=== PATIENT | male | born 1970 | race Caucasian/White ===

== ENCOUNTER 2017-12-24 16:22 | Inpatient (IN) | payer OTHER ==
[~2017-12-24] VITALS: Ht 165.1 cm; Wt 79.2 kg
[2017-12-24] MEDS ORDERED: PANTOPRAZOLE 80 MG in SODIUM CHLORIDE 0.9% 100 ML IV STA (16:35)
[2017-12-24] MEDS ORDERED: SODIUM CHLORIDE 0.9% IV STA (16:35)
[2017-12-24] MEDS ORDERED: SODIUM CHLORIDE 0.9% 1,000 ML IV ONE (16:35)
[2017-12-24] MEDS ORDERED: PANTOPRAZOLE IV STA (16:35)
[2017-12-24] MEDS ORDERED: PANTOPRAZOLE 80 MG in SODIUM CHLORIDE 0.9% 100 ML IV NR (17:00)
[2017-12-24 17:04] LABS: HEMATOCRIT. 33.1 % (42.0-52.0); HEMOGLOBIN. 11.3 g/dL (14.0-18.0); MEAN CORPUSCULAR HEMOGLOBIN 30.7 pg (28.0-32.0); PLATELET 271 x1000/uL (130-400); RED BLOOD CELL COUNT 3.67 mill/uL (4.7-6.1); RED CELL DISTRIBUTION WIDTH 13.3 % (11.6-14.6)
[2017-12-24 17:07] LABS: CHLORIDE 100 mEq/L (98-107)
[2017-12-24 17:08] LABS: INR 1.1; PROTHROMBIN TIME 11.3 sec (9.4-11.6)
[2017-12-24] MEDS ORDERED: PANTOPRAZOLE SODIUM 40 MG/VIAL IV NR (17:27)
[2017-12-24 17:32] LABS: PLATELET ESTIMATE NORMAL
[2017-12-24] MEDS ORDERED: ONDANSETRON HCL 4MG/2ML VIAL IM ONE (18:00)
[2017-12-24] MEDS ORDERED: NAP5EC PO (21:52)
[2017-12-24 22:00] VITALS: BP 154/94
[2017-12-24 22:10] VITALS: BP 154/94
[2017-12-25] VITALS (12 sets, daily range): BP systolic 98–150; BP diastolic 46–103
[2017-12-25 01:10] LABS: CHLORIDE 105 mEq/L (98-107)
[2017-12-25] MEDS: PANTOPRAZOLE 80 MG in SODIUM CHLORIDE 0.9% 100 ML IV SCH ×3 (02:00→23:39)
[2017-12-25] MEDS: DEXT 5%/0.45% NACL KCL 20MEQ/L 1,000 ML IV SCH ×3 (02:01→20:39)
[2017-12-25] MEDS ORDERED: ONDANSETRON HCL 4MG/2ML VIAL IV PRN (02:15)
[2017-12-25 07:45] LABS: HEMATOCRIT 26.7 % (42.0-52.0); HEMOGLOBIN 9.1 g/dL (14.0-18.0)
[2017-12-25] MEDS: SUCRALFATE 1 G/10 ML UDC PO SCH ×3 (11:16→20:39)
[2017-12-25 11:43] LABS: CHLORIDE 106 mEq/L (98-107)
[2017-12-25 11:55] LABS: BASOPHILS % 0.4 % (0.0-2.0); EOSINOPHILS % 0.9 % (0.0-5.0); HEMATOCRIT. 24.7 % (42.0-52.0); HEMOGLOBIN. 8.5 g/dL (14.0-18.0); LYMPHOCYTES % 25.4 % (20.0-50.0); MEAN CORPUSCULAR HEMOGLOBIN 31.2 pg (28.0-32.0); MEAN CORPUSCULAR VOLUME 91.1 fL (80.0-94.0); MEAN PLATELET VOLUME 8.8 fl (7.4-10.4); NEUTROPHILS % 63.3 % (40.0-76.0); PLATELET 182 x1000/uL (130-400); RED BLOOD CELL COUNT 2.71 mill/uL (4.7-6.1); RED CELL DISTRIBUTION WIDTH 13.6 % (11.6-14.6)
[2017-12-25 12:05] LABS: PARTIAL THROMBOPLASTIN TIME 23.3 sec (23.4-31.0); PROTHROMBIN TIME 10.4 sec (9.4-11.6)
[2017-12-25] MEDS ORDERED: SODIUM CHLORIDE 0.9% 10ML VIAL ONE (14:01)
[2017-12-25] MEDS ORDERED: FENTANYL CITRATE/PF 50MCG/ML 2ML VIAL ONE ×2 (14:17→14:36)
[2017-12-25] MEDS ORDERED: SIMETHICONE 40 MG/0.6 ML 30ML ONE (14:17)
[2017-12-25] MEDS ORDERED: MIDAZOLAM HCL 5 MG/5 ML VIAL ONE (14:17)
[2017-12-25] MEDS ORDERED: MIDAZOLAM HCL 5 MG/5 ML VIAL IV PRN (14:26)
[2017-12-25] MEDS ORDERED: FENTANYL CITRATE/PF 50MCG/ML 2ML VIAL IV PRN (14:26)
[2017-12-25] MEDS ORDERED: DIPHENHYDRAMINE 50MG/ML VIAL IV PRN (14:32)
[2017-12-25] MEDS ORDERED: DIPHENHYDRAMINE 50MG/ML VIAL ONE (14:38)
[2017-12-25 16:13] LABS: CLARITY URINE CLEAR (CLEAR); COLOR URINE YELLOW (YELLOW); KETONES URINE NEGATIVE (NEGATIVE); LEUKOCYTE ESTERASE URINE NEGATIVE (NEGATIVE); NITRITE URINE NEGATIVE (NEGATIVE); OCCULT BLOOD URINE NEGATIVE (NEGATIVE); PROTEIN URINE TRACE (NEGATIVE); SPECIFIC GRAVITY URINE 1.024 (1.005-1.030); UROBILINOGEN URINE 0.2 E.U./dL (0.2-1.0)
[2017-12-25 16:29] LABS: *AMPHETAMINES SCREEN URINE NEGATIVE (NEGATIVE); *BARBITURATES SCREEN URINE NEGATIVE (NEGATIVE); *BENZODIAZEPINES SCREEN URINE NEGATIVE (NEGATIVE); *COCAINE SCREEN URINE NEGATIVE (NEGATIVE)
[2017-12-25 16:30] LABS: CANNABINOID URINE SCREEN NEGATIVE (NEGATIVE); METHADONE URINE SCREEN NEGATIVE (NEGATIVE); OPIATES URINE SCREEN NEGATIVE (NEGATIVE); PHENCYCLIDINE URINE SCREEN NEGATIVE (NEGATIVE)
[2017-12-26] VITALS (12 sets, daily range): BP systolic 90–133; BP diastolic 37–69
[2017-12-26] MEDS: DEXT 5%/0.45% NACL KCL 20MEQ/L 1,000 ML IV SCH ×3 (01:16→17:51)
[2017-12-26 02:00] LABS: HEMOGLOBIN 7.7 g/dL (14.0-18.0)
[2017-12-26] MEDS: SUCRALFATE 1 G/10 ML UDC PO SCH ×4 (06:44→21:26)
[2017-12-26 08:00] LABS: HEMATOCRIT 22.3 % (42.0-52.0); HEMOGLOBIN 7.5 g/dL (14.0-18.0); PLATELET 137 x1000/uL (130-400); RED BLOOD CELL COUNT 2.43 mill/uL (4.7-6.1); RED CELL DISTRIBUTION WIDTH 13.1 % (11.6-14.6)
[2017-12-26] MEDS: PANTOPRAZOLE 80 MG in SODIUM CHLORIDE 0.9% 100 ML IV SCH (09:56)
[2017-12-26] MEDS ORDERED: OMEP40CA34 MT (12:05)
[2017-12-26] MEDS ORDERED: SUCR1TAB MT (12:05)
[2017-12-26 15:26] LABS: HEMATOCRIT 22.7 % (42.0-52.0); HEMOGLOBIN 7.7 g/dL (14.0-18.0)
[2017-12-26] MEDS ORDERED: ACETAMINOPHEN 325MG TABLET PO PRN (17:30)
[2017-12-27] VITALS (7 sets, daily range): BP systolic 118–129; BP diastolic 58–74
[2017-12-27] MEDS: DEXT 5%/0.45% NACL KCL 20MEQ/L 1,000 ML IV SCH ×2 (01:56→10:32)
[2017-12-27] MEDS: SUCRALFATE 1 G/10 ML UDC PO SCH (06:39)
[2017-12-27] MEDS ORDERED: PANTOPRAZOLE 40MG DR TABLET PO SCH (07:30)
[2017-12-27 07:45] LABS: HEMATOCRIT 23.6 % (42.0-52.0); HEMOGLOBIN 8.1 g/dL (14.0-18.0); MEAN CORPUSCULAR HEMOGLOBIN 31.3 pg (28.0-32.0); MEAN CORPUSCULAR VOLUME 91.5 fL (80.0-94.0); PLATELET 145 x1000/uL (130-400); RED BLOOD CELL COUNT 2.58 mill/uL (4.7-6.1); RED CELL DISTRIBUTION WIDTH 13.2 % (11.6-14.6)
== END 2017-12-27 13:45 | disposition home or self-care (01) | DRG 381 ==
LOC: ER 19:55 → 5EST 19:56 → EDBEDREQ 20:06 → EDBEDREQTM 20:06 → EDBEDREQSVC 20:06 → ENRESERV 20:10
PROVIDERS: ADMIT Internal Medicine; ATTEND Internal Medicine
PROC: 0DB68ZX Excision of Stomach, Via Natural or Artificial Opening Endoscopic, Diagnostic (ICD-10-PCS; principal; 2017-12-25 14:00)
DX: K22.11 Ulcer of esophagus with bleeding (principal); E44.1 Mild protein-calorie malnutrition; K44.9 Diaphragmatic hernia without obstruction or gangrene; K25.4 Chronic or unspecified gastric ulcer with hemorrhage; K76.0 Fatty (change of) liver, not elsewhere classified; E88.09 Other disorders of plasma-protein metabolism, not elsewhere classified; F10.20 Alcohol dependence, uncomplicated; D64.9 Anemia, unspecified; Z68.29 Body mass index [BMI] 29.0-29.9, adult; Z71.41 Alcohol abuse counseling and surveillance of alcoholic
CPT/HCPCS: 36415; 71045; 76700; 80048; 80053; 80305; 81003; 83036; 83690; 85014; 85018; 85025; 85027; 85610; 85730; 86850; 86900; 88305; 88312; 88313; 96365; 96372; 96376; 99291; A4216; C9113; J1200; J2250; J2405; J3010; J7030; J7050